=== PATIENT | female | born 1970 | race African-American/Black ===

== ENCOUNTER 2016-02-26 16:34 | Emergency (ER) | payer BC, OTHER ==
[~2016-02-26] VITALS: Ht 157.5 cm; Wt 109.8 kg
--- NOTE | ~2016-02-26 | EKG ---
[place] [address] [facility] [employer] [place] [address] ELECTROCARDIOGRAM REPORT Name: KAVIN LI Room #: [facility]#: [id number] Admission: 02/26/16 Attend Phys: Discharge: 02/26/16 Date of : 68 Report #: [id number] THIS REPORT FOR: //name// [facility] ED Test Date: 2016-02-26 Test Time: 16:38:44 Pat Name: KAVIN LI Department: Room: Gender: F [employer]: AMINATA : 1970 Requested By: Dinesh Dash Order Number: [id number] MD: Mario Perea Measurements Intervals [place] Rate: 91 P: 58 ME: 147 QRS: 31 QRSD: 90 T: -14 QT: 369 QTc: 455 Interpretive Statements Sinus rhythm Nonspecific ST-T wave abnormality No previous ECG available for comparison Electronically Signed On 02-27-2016 7:59:58 INVENTORY CONTROL CLERK by Mario Perea [email or web address] <ELECTRONICALLY SIGNED> By: Mario Perea MD, [facility] 02/27/16 0759 [id number] 1638 Mario Perea MD, FACC /EPI
[2016-02-26 16:57] LABS: ABSOLUTE NEUTROPHILS 6.6 thou/uL (1.4-8.2); BASOPHILS 0.8 % (0.0-2.0); EOSINOPHILS 1.9 % (0.0-3.0); HEMATOCRIT 38.1 % (37.0-47.0); HEMOGLOBIN 12.1 gm/dL (12.0-15.0); LYMPHOCYTES 33.7 % (24.0-44.0); MCH 20.4 pg (26.0-34.0); MCHC 31.8 % (28.0-37.0); MCV 64.3 fL (80.0-100.0); MONOCYTES 6.6 % (1.0-8.0); PLATELET COUNT 353 thou/uL (150-400); RBC 5.92 mil/uL (4.20-5.00); RDW 15.4 % (10.5-14.5); WBC 11.6 thou/uL (4.0-11.0)
[2016-02-26 17:02] LABS: MANUAL DIFF NO
[2016-02-26 17:04] LABS: ANION GAP 6 mmol/L (7-16); BUN 13 mg/dL (7-18); CALCIUM 8.9 mg/dL (8.5-10.1); CHLORIDE 102 mmol/L (98-107); CO2 31 mmol/L (21-32); CREATININE 0.9 mg/dL (0.6-1.3); GLUCOSE 98 mg/dL (70-99); SODIUM 139 mmol/L (136-145)
[2016-02-26 17:13] LABS: TROPONIN-I < 0.04 ng/mL (<0.04-0.07)
[2016-02-26] MEDS ORDERED: IBUPROFEN 600600 M1 PO (18:38)
[2016-02-26 18:59] VITALS: BP 102/62
== END 2016-02-26 19:21 | disposition home or self-care (01) ==
LOC: ER 16:34
PROVIDERS: Physician Assistant
DX: R07.89 Other chest pain (principal); E87.6 Hypokalemia; M54.9 Dorsalgia, unspecified; R06.02 Shortness of breath; R11.0 Nausea; I10 Essential (primary) hypertension; F17.210 Nicotine dependence, cigarettes, uncomplicated; F10.99 Alcohol use, unspecified with unspecified alcohol-induced disorder; Z90.710 Acquired absence of both cervix and uterus; Z98.890 Other specified postprocedural states

== ENCOUNTER → 2016-09-10 | Outpatient (CLI) | payer BC, OTHER ==
[~2016-09-10] MED LIST: IBUPROFEN 600600 M1 PO
== END ==
LOC: RAD 01:40
DX: Z12.31 Encounter for screening mammogram for malignant neoplasm of breast (principal)

== ENCOUNTER → 2018-12-05 | Outpatient (CLI) | payer BC, OTHER | LOC: RAD 09:46 | DX: Z12.31 Encounter for screening mammogram for malignant neoplasm of breast (principal) ==

== ENCOUNTER → 2020-09-08 | Outpatient (CLI) | payer BC, OTHER | LOC: BC 09:47 | PROVIDERS: ATTEND Family Medicine | DX: Z12.31 Encounter for screening mammogram for malignant neoplasm of breast (principal) ==